=== PATIENT | male | born 2000 | race Caucasian/White ===

== ENCOUNTER → 2023-01-28 | Outpatient (CLI) | payer BC ==
--- NOTE | 2023-01-28 12:47 | Diagnostic Imaging Report ---
History: Mass in the soft tissues of the right upper extremity at the back COMPARISON: None TECHNIQUE: Ultrasound of the soft tissues of the posterior right upper extremity FINDINGS: In the area of the palpable abnormality there is a mass measuring 5.6 x 1.9 x 6.2 cm in size. There is no internal blood flow acquired. This appears to have mildly increased echogenicity relative to the more superficial fat and similar echogenicity of the deeper fat. This is most consistent with a lipoma. No deep soft tissue invasion is seen. IMPRESSION: 1. Palpable abnormality of the posterior right upper extremity corresponds with a subcutaneous lipoma. Dictated by: Dictated on workstation # [id number]
== END ==
LOC: RAD 11:33
PROVIDERS: ATTEND Nurse Practitioner Family
DX: R22.2 Localized swelling, mass and lump, trunk (principal)
CPT/HCPCS: 76881